=== PATIENT | female | born 1980 | race Caucasian/White ===

== ENCOUNTER 2018-05-21 08:05 | Emergency (ER) | payer BC ==
[2018-05-21 08:13] VITALS: TEMP 97.6
[2018-05-21] MEDS ORDERED: METOCLOPRAMIDE 5 MG/ML 2 ML VIAL IVP STA (08:17)
[2018-05-21] MEDS ORDERED: SODIUM CHLORIDE 0.9% 1,000 ML IV STA (08:17)
[2018-05-21] MEDS ORDERED: KETOROLAC 30 MG/ML 1 ML VIAL IVP STA (08:17)
[2018-05-21] MEDS ORDERED: diphenhydrAMINE 50 MG/ML 1 ML VIAL IVP STA (08:17)
--- NOTE | 2018-05-21 08:19 | ED ---
General Adult HPI - General Chief complaint: Headache Stated complaint: headache Time Seen by Provider: 05/21/18 08:13 Source: patient, RN notes reviewed Mode of arrival: ambulatory Limitations: no limitations - History of Present Illness Initial comments: Patient's a 37-year-old female significant past mental history for migraines, presenting to the emergency room today with a chief complaint of migraine headache over the last 2 or 3 days. Patient describes the headache in the back of the head. States consistent with migraine that she's had in the past this had some photosensitivity along with nausea vomiting. Patient denies any new or unusual symptoms for the migraine. Patient denies any recent fever, chills, shortness of breath, chest pain, back pain, numbness or tingling, dysuria or hematuria, constipation or diarrhea, visual changes, or any other complaints. - Related Data Previous Rx's Medication Instructions Recorded Cyclobenzaprine [Flexeril] 10 mg PO TID #20 tab 05/21/18 Ibuprofen [Motrin] 600 mg PO Q6HR PRN #30 day 05/21/18 Allergies Allergy/AdvReac Type Severity Reaction Status Date / Time No Known Allergies Allergy Verified 05/21/18 08:12 Review of Systems ROS Statement: Those systems with pertinent positive or pertinent negative responses have been documented in the HPI. ROS Other: All systems not noted in ROS Statement are negative. Past Medical History Additional Past Medical History / Comment(s): migraines History of Any Multi-Drug Resistant Organisms: None Reported Additional Past Surgical History / Comment(s): breast implants Past Psychological History: No Psychological Hx Reported Smoking Status: Former smoker Past Alcohol Use History: Occasional Past Drug Use History: None Reported General Exam - General Exam Comments Initial Comments: General: The patient is awake and alert, in mild discomfort. Eye: Pupils are equal, round and reactive to light, extra-ocular movements are intact. No nystagmus. There is normal conjunctiva bilaterally. No signs of icterus. Ears, nose, mouth and throat: There are moist mucous membranes and no oral lesions. Neck: The neck is supple, there is no tenderness or JVD. Cardiovascular: There is a regular rate and rhythm. No murmur, rub or gallop is appreciated. Respiratory: Lungs are clear to auscultation, respirations are non-labored, breath sounds are equal. No wheezes, stridor, rales, or rhonchi. Musculoskeletal: Normal ROM, no tenderness. Sensation intact. Neurological: A&O x 3. CN II-XII intact, There are no obvious motor or sensory deficits. Coordination appears grossly intact. Speech is normal. Skin: Skin is warm and dry and no rashes or lesions are noted. Psychiatric: Cooperative, appropriate mood & affect, normal judgment. Limitations: no limitations Course Vital Signs 05/21/18 05/21/18 08:10 09:30 Temperature 97.6 F Pulse Rate 75 74 Respiratory 16 18 Rate Blood Pressure 166/106 165/95 O2 Sat by Pulse 99 100 Oximetry Medical Decision Making - Medical Decision Making Patient reexamined at this time shows no signs of distress. Admits that her headache has completely resolved here in the emergency room. She has admit to some tension in her neck to the left side in the trapezius area. Unsure if this is possible cause for some these migraines. Discussed with patient that pain may improve with some muscle relaxant may will make her drowsy. Will give patient a prescription to use at home if needed. Advised also continue with anti-inflammatories for any rebound headaches. Advised to return and follow-up family doctor for any other concerns. Disposition Clinical Impression: Migraine Disposition: HOME SELF-CARE Condition: Good Instructions: Migraine Headache (ED) Additional Instructions: Please use medication as discussed. Please follow-up with family doctor in the next 2 days of symptoms have not improved. Please return to emergency room if the symptoms increase or worsen or for any other concerns. Prescriptions: Cyclobenzaprine [Flexeril] 10 mg PO TID #20 tab Ibuprofen [Motrin] 600 mg PO Q6HR PRN #30 day PRN Reason: Pain Is patient prescribed a controlled substance at d/c from ED?: No Referrals: None,Stated [Primary Care Provider] - 1-2 days Time of Disposition: 09:49
[2018-05-21 09:30] VITALS: BP 165/95; PULSE 74; RESP 18
== END 2018-05-21 09:55 | disposition home or self-care (01) ==
LOC: EC 08:05
DX: G43.909 Migraine, unspecified, not intractable, without status migrainosus (principal); Z87.891 Personal history of nicotine dependence; Z98.82 Breast implant status
CPT/HCPCS: 99283; 96374; 96375 ×2; 96361; J1200; J2765; J1885

== ENCOUNTER → 2021-12-12 | Outpatient (CLI) | payer BC ==
--- NOTE | 2021-12-12 10:38 | US ---
EXAMINATION TYPE: Transabdominal DATE OF EXAM: 12/12/2021 10:22 AM COMPARISON: NONE CLINICAL HISTORY: O26.851 SPOTTING COMPLICATING , FIRST TRIMESTER. Spotting. EXAM PERFORMED: Transabdominal (TA) EXAM MEASUREMENTS: GESTATIONAL AGE / DATING Physician Established: Not yet established Dates by LMP: (11 weeks/2 days) EDC: 07/01/2022 Dates by First Scan: No previous this is first scan Dates by Current Scan for: (11 weeks/4 days) EDC: 06/29/2022 MATERNAL ANATOMY Uterus: 10.5 x 8.1 x 7.3 cm Right Ovary: 2.5 x 2.0 x 1.9 cm Left Ovary: 3.5 x 2.3 x 2.3 cm Post CDS / Adnexa: no free fluid Presence of free fluid: no Presence of corpus luteal cyst: left ovary = 2.0 x 1.3 x 1.7 cm Presence of subchorionic bleed: 1.3 x 1.3 x 0.8 cm GESTATION / SURVEY CRL: 4.8 cm (11 weeks/4 days) MSD: seen, not measured Yolk Sac (normal less than 6mm): not seen Heart Rate: 168 bpm Rhythm: Normal IUP: Viable IUP Age Appropriate Anatomy Limbs: Visualized Calvarium: Visualized Date of LMP: 09/24/2021, Beta HcG (if available): Not available at this time Single live intrauterine gestation is seen as gestational sac and pole are present. Yolk sac no t identified. Superiorly there is 1.3 x 0.8 x 1.3 cm curvilinear hypoechoic area thought to reflect s mall subchorionic hemorrhage or resolving implantation bleed. No free fluid in pelvic cul-de-sac. Both ovaries are present. Left ovary has nonsimple 1.7 cm peripheral hypervascular lesion suspected c orpus luteal cyst. No suspicious extra ovarian adnexal lesion. IMPRESSION: Single live intrauterine gestation is confirmed. Mean crown-rump length is 4.8 cm corresp onding to 11 week 4 day old fetus.
== END | disposition home or self-care (01) ==
LOC: RADUSWWP 09:52
PROVIDERS: ATTEND Obstetrics & Gynecology Obstetrics
DX: O26.851 Spotting complicating pregnancy, first trimester (principal); Z3A.11 11 weeks gestation of pregnancy
CPT/HCPCS: 76801

== ENCOUNTER 2022-06-15 09:30 | Outpatient (CLI) | payer BC ==
[2022-06-15 11:02] VITALS: BP 126/82; PULSE 102; RESP 14; TEMP 97.3
--- NOTE | 2022-08-04 13:50 | P.MSEPDOC ---
Presenting Problems - Arrival Data Date of Arrival on Unit: 06/15/22 Time of Arrival on Unit: 09:30 Mode of Transport: Ambulatory - Complaint OB-Reason for Admission/Chief Complaint: Acute Nausea/Vomiting Medical History - Information : 1 Para: 0 Term: 0 : 0 Abortions: Spontaneous or Elective: 0 Number of Living Children: 0 - Gestational Age Gestational Age by FRANCISCO (wks/days): 37 Weeks and 5 Days Review of Systems - Review of Systems Constitutional: No problems Breast: No problems ENT: No problems Cardiovascular: No problems Respiratory: No problems Gastrointestinal: No problems Genitourinary: No problems Musculoskeletal: No problems Neurological: No problems Skin: No problems Vital Signs - Temperature Temperature: 97.3 F Temperature Source: Temporal Artery Scan - Pulse Right Brachial Pulse Rate: 102 Pulse Assessment Method: Automatic Cuff - Respirations Respiratory Rate: 14 Oxygen Delivery Method: Room Air - Blood Pressure Right Arm Blood Pressure: 126/82 Blood Pressure Mean: 96 Blood Pressure Source: Automatic Cuff Medical Screen Scoring - Cervical Exam Dilation (cm): 0 Effacement (%): 50 Station: -2 Membranes: Intact - Assessment - Baby A Baseline FHR: 135 Heart Rate - NICHD Category: Category I (Normal) Physician Notification - Physician Notified Physician Notified Date: 06/15/22 Physician Notified Time: 10:30 Physician: Sebastian Byers Order Received: Yes - Notification Comment Comment: d/c home Maternal Triage Index - Maternal Triage Index Presenting for scheduled procedure w/no complaint: No - Stat/Priority 1 Stat Priority 1: No - Urgent/Priority 2 Urgent Priority 2: No - Prompt/Priority 3 Prompt Priority 3: No - Non-Urgent/Priority 4 Non-Urgent Priority 4: Yes Criteria Met for Priority 4: c/o tamir and vomitting Disposition - Disposition OB Disposition: Discharge to home Discharge Date: 06/15/22 Discharge Time: 10:30 I agree with the RN Medical Screening Exam: Yes Physician's MSE Comment: patient was not seen or examined by myself. Case reviewed; plan agreed upon as documented in EMR&OBIX.: Yes Diagnosis: VOMITING OF , UNSPECIFIED
== END 2022-06-15 10:30 | disposition home or self-care (01) ==
LOC: FBPOP 09:30
PROVIDERS: ATTEND Obstetrics & Gynecology Obstetrics
DX: O26.893 Other specified pregnancy related conditions, third trimester (principal); Z3A.37 37 weeks gestation of pregnancy; O21.9 Vomiting of pregnancy, unspecified; Z87.891 Personal history of nicotine dependence
CPT/HCPCS: 59025; 84112; 99213